=== PATIENT | male | born 1965 | race Caucasian/White ===

== ENCOUNTER 2024-09-24 13:17 | Emergency (ER) | payer OTHER, SELFPAY ==
[2024-09-24 13:26] VITALS: BP 147/80; PULSE 107; RESP 18; TEMP 39.6; O2SAT 99
--- NOTE | 2024-09-24 13:31 | ED_ITS ---
HPI - URI/Sore Throat General Chief Complaint: Upper Respiratory Infection Stated Complaint: chest cold Time Seen by Provider: 09/24/24 13:31 Source: patient and RN notes reviewed Mode of arrival: ambulatory Limitations: no limitations History of Present Illness HPI Narrative: 58 y/o male with HTN presented for c/o headache, body aches, sinus pressure/congestion, cough, fever/chills. Onset yesteray. Denies sob, wheezing, n/v/d. Smokes 1ppd. Taking coricidin and cough drops. MD elicited complaint: cough Related Data Home Medications ?Medication ?Instructions ?Recorded ?Confirmed ?Last Taken ?Type clopidogrel 75 mg tablet mg 09/24/24 Unknown History lisinopril 20 tablet 09/24/24 Unknown History mg-hydrochlorothiazide 25 mg tablet Allergies Allergy/AdvReac Type Severity Reaction Status Date / Time No Known Allergies Allergy Verified 09/24/24 13:32 Review of Systems Review of Systems: CONSTITUTIONAL: Endorses malaise, chills, sweats, fever EYES: Denies visual changes, redness, or discharge ENT: Reports rhinorrhea, congestion, otalgia, sore throat CARDIOVASCULAR: Denies chest pain, palpitations, edema RESPIRATORY: Reports cough, post nasal drainage. Denies dyspnea GASTROINTESTINAL: Denies abdominal pain, nausea, vomiting, diarrhea MUSCULOSKELETAL: Endorses myalgia NEUROLOGIC: Endorses headache COUNT INCLUDES THE [facility] Past Medical History Medical History (Updated 09/24/24 @ 13:47 by Edith Anderson, BRUCE) Hypertension Mini stroke Exam Narrative: GENERAL: Ill-appearing, nontoxic no acute distress. EYES: PERRLA, conjunctivae clear ENT: Mucous membranes moist. TM pearly ortiz with dull light reflex bilaterally; no tragal tenderness. Oropharynx erythematous without lesions or exudate, no drooling, no hoarseness, no trismus, uvula midline. No tripod positioning, muffled voice, soft palate or pharyngeal wall bulging NECK: Supple. No lymphadenopathy CHEST: Clear to auscultation, breath sounds equal. No wheezing, rhonchi, rales, or stridor. No respiratory distress, speaks in full sentences. HEART: Regular rate and rhythm. No murmur heard. SKIN: Warm, dry, no rash. NEURO: Alert and oriented x3. PSYCH: Normal mood and affect Course Course Emergency Course: Patient is aware of diagnosis, understands and agrees to treatment plan. Anticipatory guidance given. Patient agrees to follow-up as directed and is aware of reasons to seek care at the emergency department. Portions of this record may have been created with voice recognition software Level of Care: Express Care Visit Vital Signs Vital signs: Vital Signs Temperature 103.2 F H 09/24/24 13:26 Pulse Rate 107 H 09/24/24 13:26 Respiratory Rate 18 09/24/24 13:26 Blood Pressure 147/80 H 09/24/24 13:26 Pulse Oximetry 99 09/24/24 13:26 Oxygen Delivery Room Air 09/24/24 13:26 Temperature 103.2 F H 09/24/24 13:26 Pulse Rate 107 H 09/24/24 13:26 Respiratory Rate 18 09/24/24 13:26 Blood Pressure 147/80 H 09/24/24 13:26 Pulse Oximetry 99 09/24/24 13:26 Oxygen Delivery Room Air 09/24/24 13:26 reviewed MDM - URI/Sore Throat MDM Narrative Medical decision making narrative: Positive influenza. Discussed physical exam findings. Advised supportive measures and signs/symptoms to go to the ER. Pt is appropriate for outpt treatment and f/u. Differential Diagnosis Differential diagnosis: Likely upper respiratory infection, sinusitis, viral infection, bronchitis and influenza Discharge Plan Discharge Clinical Impression: Influenza Patient Disposition: Home, Self-Care Condition: Stable Instructions: Antibiotic Form, Influenza (ED) Additional Instructions: Influenza positive You should avoid crowds until you are fever free for 24 hours without the use of fever reducing medications, or the symptoms are improved Rest. Drink plenty of fluids. Tylenol 1000mg every 8 hours as needed for pain/fever Recommend Flonase spray and Zyrtec (or Claritin/Radha) for sinus pressure/congestion over the counter Cough syrup may cause drowsiness; avoid driving or take it at night time. Follow up with your primary care provider as needed Go to the ER for worsening symptoms or concerns Patient Language: Welsh Prescriptions: New oseltamivir [Tamiflu] 75 mg capsule 75 mg PO Q12H 5 Days Qty: 10 0RF methylprednisolone [Medrol (Efren)] 4 mg tablets,dose pack See Rx Instructions .ROUTE .COMPLEX Qty: 21 0RF Rx Instructions: orally per package directions albuterol sulfate 90 mcg/actuation HFA aerosol inhaler 2 inh inhalation QID PRN (Reason: shortness of breath or wheezing) Qty: 8.5 0RF No Action clopidogrel 75 mg tablet lisinopril-hydrochlorothiazide 20-25 mg tablet Follow-up/Referrals: Harms,David López M.D. [Primary Care Provider] - Time of Disposition: 13:46
[2024-09-24 13:45] LABS: EDCOVIDSCREEN Negative (Negative); EDINFLUASCREEN Positive (Negative); EDINFLUBSCREEN Negative (Negative)
--- OUTSIDE RECORDS SUMMARY | 2024-09-24 14:04 | XMS_ITS | Clinical Summary ---
Author Organization [facility] [address] [facility] lt Address [address] [place] [address] Care Team Providers Care Broadcast Designer Name Role Phone David Hernandez MD Primary Care Provider [phone] Allergies Active Allergy Reactions Criticality Noted Date Comments Cefprozil Rash Medium Penicillins Rash Medium Medications multivitamin capsule take 1 capsule by ORAL route every day 0 0 Active diphenhydrAMINE -acetaminophen (TYLENOL PM) 25-500 mg tablet Take 1 tablet by mouth daily Active albuterol HFA (PROVENTIL HFA,VENTOLIN HFA,PROAIR HFA) 90 mcg/actuation inhaler INHALE 2 PUFFS BY MOUTH EVERY 4-6 HOURS NEEDED 8.5 each 1 3 Active atorvastatin (LIPITOR) 20 mg tablet TAKE 1 TABLET BY MOUTH EVERY DAY 90 tablet 1 4 Active clobetasoL (TEMOVATE) 0.05 % ointment Apply to affected areas twice a day during exacerbation. Dx: dyshidrotic eczema 60 g 2 4 Active clopidogreL (PLAVIX) 75 mg tabletIndicatio ns:Occipital stroke (HCC) Take 1 tablet (75 mg total) by mouth daily 30 tablet 11 4 Active amLODIPine (NORVASC) 10 mg tablet Take 1 tablet (10 mg total) by mouth daily 90 tablet 3 4 Active doxycycline (PERIOSTAT) 20 mg tablet TAKE 1 TABLET BY MOUTH TWICE A DAY 120 tablet 4 Active lisinopril-hydr oCHLOROthiazide (ZESTORETIC) 20-25 mg per tablet TAKE 1 TABLET BY MOUTH EVERY DAY 30 tablet 10 4 Active Active Problems Problem Noted Date Diagnosed Date Occipital stroke 03/13/2021 Postoperative urinary retention 09/21/2020 Acute cholecystitis 09/04/2020 Obstructive sleep apnea syndrome 01/09/2014 Overview (11/28/2016): Obstructive sleep apnea Tobacco dependence syndrome 01/09/2014 Overview (11/29/2016): TOBACCO USE DISORDER Disorder of joint 10/02/2010 Overview (12/01/2016): ARTHROPATHY NOS-MULT Immunizations Name Administration Dates Next Due Influenza, Quadrivalent, Spl it, Preservative Free, Intramuscular 05/26/2021,05/17/2021 Influenza, Trivalent, IM (MDV) 06/06/2009 Influenza, Trivalent, Preser vative Free, Intramuscular 04/26/2014 Influenza, Unspecified 04/26/2022,2019,07/09/2019,07/09,07/10/2018,07/10/2018 Pfizer SARS-CoV-2 Monovalent Vaccination (12+ Yrs) PURPLE 09/29/2021,09/08/2021 Pneumococcal Polysaccharide PPV23 10/02/2010 Tdap 10/02/2010 Surgical History Surgery Date Site/Laterality Comments FINGER SURGERY 35 years ago CHOLECYSTECTOMY 09/04/2020 Medical History Medical History Date Comments Hx Other Medical Heart attack Peptic ulcer Peptic ulcer dis ease Hx Other Medical kidney diease Hypertension Hypertension Hx Other Medical Headache, migra ine Hyperlipidemia Hyperlipidemia Arthritis Stroke (HCC) Family History Medical History Relation Name Comments Other Brother 2 Healthy; Cancer Father Cancer; Coronary artery disease Father Nancy nary artery disease; Diabetes type II Mother Diabetes me llitus type 2; Hypertension Mother Hypertension; Cancer Other 1 Family history of Cancer; Diabetes Other 2 Family history of Diabetes mellitus; Relation Name Status Comments Brother 1 Alive Brother 2 Father (Age 69) Mother Alive Other 1 Other 2 Social History Tobacco Use Types Packs/Day Years Used Date Smoking Tobacco: Heavy Smoker Cigarettes 1 36 Smokeless Tobacco: Never Tobacco Cessation:Ready to Q uit: Not Asked; Counseling Given: Not Answered Comments:Smoking History Packs/day: 1 Packs Alcohol Use Standard Drinks/Week Comments Not Currently 0 (1 standard drink = 0.6 oz pur e alcohol) [facility] Utilities Answer Date Recorded In the past 12 months has th e electric, gas, oil, or water company threatened to shut off services in your home? No 09/02/2023 Humiliation, Afraid, Rape, and Kick questionnair e Answer Date Recorded Within the last year, have y ou been afraid of your partner or ex-partner? No 09/02/2023 Within the last year, have y ou been humiliated or emotionally abused in other ways by your partner or ex-partner? No Within the last year, have y ou been kicked, hit, slapped, or otherwise physically hurt by your partner or ex-partner? No 09/02/2023 Within the last year, have y ou been raped or forced to have any kind of sexual activity by your partner or ex-partner? No 09/02/2023 Social Connection and Isolat ion Panel [NHANES] Answer Date Recorded In a typical week, how many times do you talk on the phone with family, friends, or neighbors? More than three times a week 09/02/2023 How often do you get togethe r with friends or relatives? More than three times a week 09/02/2023 How often do you attend chur ch or worship services? Never 09/02/2023 Do you belong to any clubs o r organizations such as denominational groups, unions, fraternal or athletic groups, or school groups? No 09/02/2023 How often do you attend meet ings of the clubs or organizations you belong to? Never 09/02/2023 Are you , , di vorced, , never , or living with a partner? 09/02/2023 AUDIT-C Answer Date Recorded Q1: How often do you have a drink containing alcohol? Never 09/02/2023 Q2: How many drinks containi ng alcohol do you have on a typical day when you are drinking? Patient does not drink Q3: How often do you have si x or more drinks on one occasion? Never 09/02/2023 Overall Financial Resource Strain (CARDIA) Answe r Date Recorded How hard is it for you to pa y for the very basics like food, housing, medical care, and heating? Not very hard 09/02/2023 PHQ-2 Answer Date Recorded PHQ-2 Total Score (If total score is 3 or more points, staff should administer the PHQ-9) 0 09/02/2023 [facility] - Occupational Stress Questionnaire Answer Date Recorded Do you feel stress - tense, restless, nervous, or anxious, or unable to sleep at night because your mind is troubled all the time - these days? To some extent 09/02/2023 Exercise Vital Sign Answer Date Recorde d On average, how many days pe r week do you engage in moderate to strenuous exercise (like a brisk walk)? 0 days 09/02/2023 On average, how many minutes do you engage in exercise at this level? 0 min 09/02/2023 Hunger Vital Sign Answer Date Recorded Within the past 12 months, y ou worried that your food would run out before you got the money to buy more. Never true 09/02/19 24 Within the past 12 months, t he food you bought just didn't last and you didn't have money to get more. Never true 09/02/2023 PRAPARE - Transportation Answer Date Re corded In the past 12 months, has l ack of transportation kept you from medical appointments or from getting medications? No 03/2024 In the past 12 months, has l ack of transportation kept you from meetings, work, or from getting things needed for daily living? No 09/02/2023 Housing Stability Vital Sign Answer Ozzy e Recorded In the last 12 months, was t here a time when you were not able to pay the mortgage or rent on time? No 09/02/2023 In the last 12 months, how many places have you lived? 1 09/02/2023 In the last 12 months, was t here a time when you did not have a steady place to sleep or slept in a jail (including now)? No 09/02/2023 Sex and Gender Information Value Date Recorded Sex Assigned at Not on file Legal Sex Male 9:51 AM HOUSE SUPERINTENDENT Gender Identity Not on file Sexual Orientation Straight 11/07/2020 7: 22 AM CDT Obstetrics History Last Filed Vital Signs Vital Sign Reading Time Taken Comments Blood Pressure 118/70 09/02/2023 3:51 PM HOUSE SUPERINTENDENT Pulse 85 09/02/2023 3:51 PM HOUSE SUPERINTENDENT Temperature 36.2 ??C (97.1 ??F) 09/02/2023 3:51 PM CS T Respiratory Rate 16 08/01/2022 3:11 PM HOUSE SUPERINTENDENT Oxygen Saturation 98% 09/02/2023 3:51 PM HOUSE SUPERINTENDENT Inhaled Oxygen Concentration - - Weight 95.3 kg (210 lb) 10/05/2023 9:53 AM HOUSE SUPERINTENDENT Height 175.3 cm (5' 9 ) 10/05/2023 9:53 AM HOUSE SUPERINTENDENT Body Mass Index 31.01 10/05/2023 9:53 AM HOUSE SUPERINTENDENT Plan of Treatment Health Maintenance Due Date Last Done Comments Colon Cancer Screening-Colonoscopy 1965 Hepatitis C Screening 1965 Hepatitis B Screening 10/31/1983 Pneumococcal vaccine <65 (2 of 2 - PCV) 10/02/2011 10/02/2010 Zoster Vaccine (1 of 2) 10/31/2015 Regular Well Visit/Exam 18-64 05/28/2020 05/28/2019 DTaP/Tdap/Td Vaccine (2 - Td or Tdap) 10/02/2020 10/02/2010 Covid-19 Vaccine (3 - 2023-2 5 season) 2024 09/29/2021, 09/08/2021 Influenza Vaccine (#1) 2024 3, 04/26/2022, 05/26/2021, Additional history exists Depression Screening 09/02/2024 09/02/2023, 09/02/2023, 08/01/2022, Additional history exists Prostate Cancer Screening-PSA 09/14/2025, 07/28/2022, 04/06/2019 Colon Cancer Screening-DNA Stool Discontinued 04/26/20 Colon Cancer Screening-FIT Discontinued 04/26/2020 Procedures Procedure Name Priority Date/Time Associated Diagnosis Comments PSA SCREEN Routine 09/14/2023 11:03 AM HOUSE SUPERINTENDENT Prostate cancer screening STOOL DNA ? COLOGUARD Routine 04/26/2020 from Last 3 Months or Most Recently Relevant to Health Maintenance Results * PSA screen (09/14/2023 11:03 AM HOUSE SUPERINTENDENT) PSA-Total 1.16 <=3.90 ng/mL FRANCESCODAVID FINNEY ([place]) Comment: Interpretive Data ?AGE ? SEX ?REFERENCE INTERVAL 0 minutes-150 years ?Female ?None 0 minutes-49 years ? Male ?None ? 50-59 years ? Male ?0-3.90 ? 60-69 years ? Male ?0-5.40 ? 70-79 years ? Male ?0-6.20 ? 80-150 years ?Male ?0-6.20 The Jann PSA Total assay procedure was used. Results from different manufacturers or methods may not be comparable. Serial testing should be performed using the same method. Current interpretive data last revised 21. Blood 09/14/2023 11:0 3 AM HOUSE SUPERINTENDENT 09/14/2023 12:43 PM HOUSE SUPERINTENDENT David Hernandez MD LAB BLOOD ORDERABLES Nanette l Result Performing Organization Address City/[facility]/ZIP Co de Phone Number MARCELLE FINNEY ([place]) 1 [facility] Department [place] [address] * Stool DNA - Cologuard (04/26/2020) Stool Historical Provider LAB BODY FLUIDS AND STOOL S ORDERABLES Final Result EXTERNAL LAB from Last 3 Months or Most Recently Relevant to Health Maintenance Insurance [facility] PL[facility] Advance Directives For more information, please contact: [phone] * Full Code (Latest Code Status on File) Date Activated Date Inactivated Comments 09/04/2020 7:54 PM 09/08/2020 5:15 PM Care Teams Broadcast Designer Relationship Specialty Start Date End Date David Hernandez MD [address] [place] [address] PCP - General 04/06/13
--- OUTSIDE RECORDS SUMMARY | 2024-09-24 14:04 | XMS_ITS | Encounter Summary ---
Author Organization [facility] Address [address] [place] [address] Phone Care Team Providers Care Child Protective Services Social Worker Name Role Phone David Hernandez MD Primary Care Provider [phone] Encounter Details Date Type Department Care Team (Late st Contact Info) Description 09/14/2020 Telephone [facility] Advanced Medicine ([facility]) - [facility] Urology [address] [place] [address] Advanced Medicine 11th [place] [address] [place] [address] Belén Alonzo Social History Tobacco Use Types Packs/Day Years Used Date Smoking Tobacco: Heavy Smoker Cigarettes Smokeless Tobacco: Never Comments:Smoking History Pac ks/day: 1 Packs Alcohol Use Standard Drinks/Week Comments Not Currently 0 (1 standard drink = 0.6 oz pur e alcohol) PHQ-2 Answer Date Recorded PHQ-2 Total Score (If total score is 3 or more points, staff should administer the PHQ-9) 0 03/02/2020 Sex and Gender Information Value Date Recorded Sex Assigned at Not on file 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
--- OUTSIDE RECORDS SUMMARY | 2024-09-24 14:04 | XMS_ITS | Referral Summary ---
Author Organization [facility] [address] [facility] lt Address [address] [place] [address] Care Team Providers Care Video Control Operator Name Role Phone David Hernandez MD Primary Care Provider [phone] Allergies Active Allergy Reactions Criticality Noted Date [...] 09/29/2021,09/08/2021 Pneumococcal Polysaccharide PPV23 10/02/2010 Tdap 10/02/2010 Social History Tobacco Use Types Packs/Day Years Used Date Smoking Tobacco: Heavy Smoker Cigarettes 1 36 Smokeless Tobacco: Never Tobacco Cessation:Ready to Q uit: Not Asked; Counseling Given: Not Answered Comments:Smoking History Packs/day: 1 Packs Alcohol Use Standard Drinks/Week Comments Not Currently 0 (1 standard drink = 0.6 oz pur e alcohol) [facility] Utilities Answer Date Recorded In the past 12 months has e [employer] gas, oil, or water Traveler | [employer] threatened to shut off services in your [...] 09/02/2023 How often do you attend chur or latter-day services? Never 09/02/2023 Do you belong to any clubs o r organizations such as adventism groups, unions, fraternal or athletic groups, or [...] staff should administer the PHQ-9) 0 09/02/2023 [facility] of Occupat ional Health - Occupational Stress Questionnaire Answer Date Recorded [...] place to sleep or slept in a fci (including now)? No 09/02/2023 Sex and Gender Information Value Date Recorded Sex Assigned at Not on file Legal Sex Male 9:51 AM CLINICAL TRIALS ASSISTANT Gender Identity Not on file Sexual Orientation Straight 11/07/2020 7: 22 AM CDT Last Filed Vital Signs Vital Sign Reading Time Taken Comments Blood Pressure 118/70 09/02/2023 3:51 PM CLINICAL TRIALS ASSISTANT Pulse 85 09/02/2023 3:51 PM CLINICAL TRIALS ASSISTANT Temperature 36.2 ??C (97.1 ??F) 09/02/2023 3:51 PM CS T Respiratory Rate 16 08/01/2022 3:11 PM CLINICAL TRIALS ASSISTANT Oxygen Saturation 98% 09/02/2023 3:51 PM CLINICAL TRIALS ASSISTANT Inhaled Oxygen Concentration - - Weight 95.3 kg (210 lb) 10/05/2023 9:53 AM CLINICAL TRIALS ASSISTANT Height 175.3 cm (5' 9 ) 10/05/2023 9:53 AM CLINICAL TRIALS ASSISTANT Body Mass Index 31.01 10/05/2023 9:53 AM CLINICAL TRIALS ASSISTANT Plan of Treatment Not on file Procedures Procedure Name Priority Date/Time Associated Diagnosis Comments PSA SCREEN Routine 09/14/2023 11:03 AM CLINICAL TRIALS ASSISTANT Prostate cancer screening STOOL DNA ? COLOGUARD Routine 04/26/2020 from Last 3 Months or Most Recently Relevant to Health Maintenance Results * PSA screen (09/14/2023 11:03 AM CLINICAL TRIALS ASSISTANT) PSA-Total 1.16 <=3.90 ng/mL MARCELLE FINNEY ([place]) Comment: Interpretive Data ?AGE ? SEX ?REFERENCE [...] revised 21. Blood 09/14/2023 11:0 3 AM CLINICAL TRIALS ASSISTANT 09/14/2023 12:43 PM CLINICAL TRIALS ASSISTANT us David Hernandez MD LAB BLOOD ORDERABLES Nanette caceres Result MARCELLE SHARMIN ([place]) 1 [facility] Department [place] [address] * Stool DNA - Cologuard (04/26/2020) Stool us Historical Provider MD LAB BODY FLUIDS AND STOOL S ORDERABLES Final Result EXTERNAL LAB from Last 3 Months or Most Recently Relevant to Health Maintenance Insurance [facility] CHOICE PLUS [facility] PLUS [facility] Advance Directives For more information, please contact: [phone] * Full Code (Latest Code Status on File) Date Activated Date Inactivated Comments 09/04/2020 7:54 PM 09/08/2020 5:15 PM Care Teams Video Control Operator Relationship Specialty Start Date End Date David Hernandez MD [address] [place] [address] PCP - General 04/06/13"
== END 2024-09-24 13:51 | disposition home or self-care (01) ==
PROVIDERS: Emergency Provider Nurse Practitioner Family; PCP Family Medicine
DX: J10.1 Influenza due to other identified influenza virus with other respiratory manifestations (principal); Z20.822 Contact with and (suspected) exposure to COVID-19; I10 Essential (primary) hypertension; Z86.73 Personal history of transient ischemic attack (TIA), and cerebral infarction without residual deficits
CPT/HCPCS: 87426; 87804; 99203; G0463

== ENCOUNTER 2024-10-03 14:55 | Emergency (ER) | payer OTHER, SELFPAY ==
--- NOTE | ~2024-10-03 | XR_ITS ---
EXAMINATION: XR chest 2V Exam Date/Time: 10/03/2024 17:08 DIET TECHNICIAN REGISTERED HISTORY: cough Comparison: None. RESULT: Lines, tubes, and devices: Cholecystectomy clips. Lungs and pleura: Mild emphysematous change, otherwise clear. Cardiomediastinal silhouette: Unremarkable. Other: No acute osseous or upper abdominal finding. IMPRESSION: No acute cardiopulmonary process. Reviewed, dictated and finalized at location K. TECHNICIAN REGISTERED
--- OUTSIDE RECORDS SUMMARY | 2024-10-03 15:11 | XMS_ITS | Clinical Summary ---
Author Organization [facility] [address] [facility] lt Address [address] [place] [address] Care Team Providers Care Freight Caller Name Role Phone David Hernandez MD Primary Care Provider [phone] [phone] Allergies Active Allergy Reactions Criticality Noted Date Comments Cefprozil Rash Medium Penicillins Rash Medium Medications multivitamin capsule take 1 capsule by ORAL route every day 0 04/11/20 10 Active diphenhydrAMIN E-acetaminophe n (TYLENOL PM) 25-500 mg tablet Take 1 tablet by mouth daily Active albuterol HFA (PROVENTIL HFA,VENTOLIN HFA,PROAIR HFA) 90 mcg/actuation inhaler INHALE 2 PUFFS BY MOUTH EVERY 4-6 HOURS NEEDED 8.5 each 1 02/15/20 23 Active atorvastatin (LIPITOR) 20 mg tablet TAKE 1 TABLET BY MOUTH EVERY DAY 90 tablet 1 08/27/19 24 Active clobetasoL (TEMOVATE) 0.05 % ointment Apply to affected areas twice a day during exacerbation. Dx: dyshidrotic eczema 60 g 2 09/02/19 24 Active amLODIPine (NORVASC) 10 mg tablet Take 1 tablet (10 mg total) by mouth daily 90 tablet 3 09/02/19 24 Active doxycycline (PERIOSTAT) 20 mg tablet TAKE 1 TABLET BY MOUTH TWICE A DAY 120 tablet 10/23/19 24 Active lisinopril-hyd roCHLOROthiazi de (ZESTORETIC) 20-25 mg per tablet TAKE 1 TABLET BY MOUTH EVERY DAY 30 tablet 10 12/09/19 24 Active clopidogreL (PLAVIX) 75 mg tabletIndicati ons:Occipital stroke (HCC) TAKE 1 TABLET BY MOUTH EVERY DAY 30 tablet 1 09/29/19 25 Active clopidogreL (PLAVIX) 75 mg tabletIndicati ons:Occipital stroke (HCC) Take 1 tablet (75 mg total) by mouth daily 30 tablet 11 09/02/19 24 025 Discontinued Active Problems Problem Noted Date Diagnosed Date Occipital stroke 03/13/2021 Postoperative urinary retention 09/21/2020 Acute cholecystitis 09/04/2020 Obstructive sleep apnea syndrome 01/09/2014 Overview (11/28/2016): Obstructive sleep apnea Tobacco dependence syndrome 01/09/2014 Overview (11/29/2016): TOBACCO USE DISORDER Disorder of joint 10/02/2010 Overview (12/01/2016): ARTHROPATHY NOS-MULT Encounters Date Type Department Care Team Description 09/28/2024 Orders Only [facility] Information Management [address] [place] [id number] Scanning, Provider from Last 3 Months Immunizations Name Administration Dates Next Due Influenza, [...] drink = 0.6 oz pur e alcohol) [facility] [employer] Answer Date Recorded In the past 12 months has e [employer], gas, oil, or water [employer] threatened to shut off services in your [...] often do you attend chur ch or yarsani services? Never 09/02/2023 Do you belong to any clubs o r organizations such as mu-ism groups, unions, fraternal or athletic groups, or [...] staff should administer the PHQ-9) 0 09/02/2023 [facility] of Occupat ional Health - Occupational Stress [...] place to sleep or slept in a retirement (including now)? No 09/02/2023 Sex and Gender Information Value Date Recorded Sex Assigned at Not on file Legal Sex Male 9:51 AM HAND ROLLER ENGRAVER Gender Identity Not on file Sexual Orientation Straight 11/07/2020 7: 22 AM CDT Obstetrics History Last Filed Vital Signs Vital Sign Reading Time Taken Comments Blood Pressure 118/70 09/02/2023 3:51 PM HAND ROLLER ENGRAVER Pulse 85 09/02/2023 3:51 PM HAND ROLLER ENGRAVER Temperature 36.2 C (97.1 F) 09/02/2023 3:51 PM HAND ROLLER ENGRAVER Respiratory Rate 16 08/01/2022 3:11 PM HAND ROLLER ENGRAVER Oxygen Saturation 98% 09/02/2023 3:51 PM HAND ROLLER ENGRAVER Inhaled Oxygen Concentration - - Weight 95.3 kg (210 lb) 10/05/2023 9:53 AM HAND ROLLER ENGRAVER Height 175.3 cm (5' 9 ) 10/05/2023 9:53 AM HAND ROLLER ENGRAVER Body Mass Index 31.01 10/05/2023 9:53 AM HAND ROLLER ENGRAVER Plan of Treatment Health Maintenance Due Date [...] 2024 09/29/2021, 09/08/2021 Influenza Vaccine (#1) 2024 , 04/26/2022, 05/26/2021, Additional history exists Depression Screening 09/02/2024 09/02/2023, 09/02/2023, 08/01/2022, Additional history exists Prostate Cancer Screening-PSA 09/14/2025, 07/28/2022, 04/06/2019 Colon Cancer Screening-DNA Stool Discontinued 04/26/20 Colon Cancer Screening-FIT Discontinued 04/26/2020 Procedures Procedure Name Priority Date/Time Associated Diagnosis Comments SCAN - LABS 09/28/2024 9:05 PM HAND ROLLER ENGRAVER PSA SCREEN Routine 09/14/2023 11:03 AM HAND ROLLER ENGRAVER Prostate cancer screening STOOL DNA COLOGUARD Routine 04/26/2020 from Last 3 Months or Most Recently Relevant to Health Maintenance Results * SCAN - LABS (09/28/2024 9:05 PM HAND ROLLER ENGRAVER) Provider Scanning Final Result * PSA screen (09/14/2023 11:03 AM HAND ROLLER ENGRAVER) PSA-Total 1.16 <=3.90 ng/mL MARCELLE FINNEY (MELANY) Comment: Interpretive Data AGE SEX REFERENCE INTERVAL 0 minutes-150 years Female None 0 minutes-49 years Male None 50-59 years Male 0-3.90 60-69 years Male 0-5.40 70-79 years Male 0-6.20 80-150 years Male 0-6.20 The Jann PSA Total assay procedure was used. Results from different manufacturers or methods may not be comparable. Serial testing should be performed using the same method. Current interpretive data last revised 21. Blood 09/14/2023 11:0 3 AM HAND ROLLER ENGRAVER 09/14/2023 12:43 PM HAND ROLLER ENGRAVER David Hernandez MD LAB BLOOD ORDERABLES Nanette l Result MARCELLE FINNEY (MELANY) 1 [facility] Department [place] [address] * Stool DNA - Cologuard (04/26/2020) Stool Ernestina Provider LAB BODY FLUIDS AND STOOL S ORDERABLES Final Result EXTERNAL LAB from Last 3 Months or Most Recently Relevant to Health Maintenance Insurance [facility] Advance Directives For more information, please contact: [phone] * Full Code (Latest Code Status on File) Date Activated Date Inactivated Comments 09/04/2020 7:54 PM 09/08/2020 5:15 PM Care Teams Freight Caller Relationship Specialty Start Date End Date David Hernandez MD [address] [place] [address] PCP - General 04/06/13
--- OUTSIDE RECORDS SUMMARY | 2024-10-03 15:11 | XMS_ITS | Referral Summary ---
Author Organization [facility] [address] [facility] lt Address [address] [place] [address] Care Team Providers Care Adult Daycare Coordinator Name Role Phone David Hernandez MD Primary Care Provider [phone] Encounters Date Type Department Care Team Description 09/28/2024 Orders Only [facility] Health Information Management [address] [place] [address] Scanning, Provider from Last 3 Months Allergies Active Allergy Reactions Criticality Noted Date [...] 0.6 oz pur e alcohol) [facility] Utilities Answer Date Recorded In the past 12 months has th e electric, gas, oil, or water [employer] threatened to shut off services in your [...] often do you attend chur ch or restorationist services? Never 09/02/2023 Do you belong to any clubs o r organizations such as faith groups, unions, fraternal or athletic groups, or [...] staff should administer the PHQ-9) 0 09/02/2023 [facility] of Occupat ional Health - Occupational Stress [...] place to sleep or slept in a long term (including now)? No 09/02/2023 Sex and Gender Information Value Date Recorded Sex Assigned at Not on file Legal Sex Male 9:51 AM FORMING ROLL OPERATOR Gender Identity Not on file Sexual Orientation Straight 11/07/2020 7: 22 AM CDT Last Filed Vital Signs Vital Sign Reading Time Taken Comments Blood Pressure 118/70 09/02/2023 3:51 PM FORMING ROLL OPERATOR Pulse 85 09/02/2023 3:51 PM FORMING ROLL OPERATOR Temperature 36.2 C (97.1 F) 09/02/2023 3:51 PM FORMING ROLL OPERATOR Respiratory Rate 16 08/01/2022 3:11 PM FORMING ROLL OPERATOR Oxygen Saturation 98% 09/02/2023 3:51 PM FORMING ROLL OPERATOR Inhaled Oxygen Concentration - - Weight 95.3 kg (210 lb) 10/05/2023 9:53 AM FORMING ROLL OPERATOR Height 175.3 cm (5' 9 ) 10/05/2023 9:53 AM FORMING ROLL OPERATOR Body Mass Index 31.01 10/05/2023 9:53 AM FORMING ROLL OPERATOR Plan of Treatment Not on file Procedures Procedure Name Priority Date/Time Associated Diagnosis Comments SCAN - LABS 09/28/2024 9:05 PM FORMING ROLL OPERATOR PSA SCREEN Routine 09/14/2023 11:03 AM FORMING ROLL OPERATOR Prostate cancer screening STOOL DNA COLOGUARD Routine 04/26/2020 from Last 3 Months or Most Recently Relevant to Health Maintenance Results * SCAN - LABS (09/28/2024 9:05 PM FORMING ROLL OPERATOR) Provider Scanning Final Result * PSA screen (09/14/2023 11:03 AM FORMING ROLL OPERATOR) PSA-Total 1.16 <=3.90 ng/mL MARCELLE FINNEY (RUSSELL) Comment: Interpretive Data AGE SEX REFERENCE INTERVAL [...] revised 21. Blood 09/14/2023 11:0 3 AM FORMING ROLL OPERATOR 09/14/2023 12:43 PM FORMING ROLL OPERATOR David Hernandez MD LAB BLOOD ORDERABLES Nanette caceres Result MARCELLE FINNEY (RUSSELL) 1 [facility] Department of Laboratories [place], [place] [id number] * Stool DNA - Cologuard (04/26/2020) Stool us Historical Provider LAB BODY FLUIDS AND STOOL S ORDERABLES Final Result Performing Organization Address City/State/[facility] Co de Phone Number EXTERNAL LAB from Last 3 Months or Most Recently Relevant to Health Maintenance Insurance [facility] Advance Directives For more information, please contact: [phone] * Full Code (Latest Code Status on File) Date Activated Date Inactivated Comments 09/04/2020 7:54 PM 09/08/2020 5:15 PM Care Teams Adult Daycare Coordinator Relationship Specialty Start Date End Date David Hernandez MD [address] [place] [address] PCP - General 04/06/13
--- OUTSIDE RECORDS SUMMARY | 2024-10-03 15:11 | XMS_ITS | Encounter Summary ---
Author Organization [facility] Address [address] [place] [address] Phone Care Team Providers Care Deposit Clerk Name Role Phone David Hernandez MD Primary Care Provider [phone] Encounter Details Date Type Department Care Team (Late st Contact Info) Description 09/14/2020 Telephone [facility] Advanced Medicine ([facility]) - [facility] Urology [address] [place] [address] Advanced Medicine 11th [place] [address] [place] [address] Belén Alonzo Social History Tobacco Use Types [...] on file Legal Sex Male 9:51 AM VTC TECHNICIAN Gender Identity Not on file Sexual Orientation Straight 11/07/2020 7: 22 AM CDT documented as of this encounter Plan of Treatment Not on file documented as of this encounter Visit Diagnoses Not on filedocumented in this encounter Care Teams Deposit Clerk Relationship Specialty Start Date End Date [place] [address] PCP - General 04/06/13 documented as of this encounter
--- OUTSIDE RECORDS SUMMARY | 2024-10-03 15:11 | XMS_ITS | Encounter Summary ---
Author Organization [facility] Address [address] [place] [address] Care Team Providers Care Tennis Net Maker Name Role Phone David Hernandez MD Primary Care Provider [phone] Encounter Details Date Type Department Care Team (Late st Contact Info) Description 09/28/2024 Orders Only [facility] [place] Information Management [address] [place] [address] Scanning, Provider Social History Tobacco Use Types Packs/Day Years Used Date Smoking Tobacco: Heavy Smoker Cigarettes 1 36 Smokeless Tobacco: Never Comments:Smoking History Pac ks/day: 1 Packs Alcohol Use Standard Drinks/Week Comments Not Currently 0 (1 standard drink = 0.6 oz pur e alcohol) [facility] Utilities Answer Date Recorded In the past 12 months has e [employer], gas, oil, or water [employer] threatened to shut off services in your [...] often do you attend chur ch or catholic services? Never 09/02/2023 Do you belong to any clubs o r organizations such as roman catholic groups, unions, fraternal or athletic groups, or [...] staff should administer the PHQ-9) 0 09/02/2023 [facility] Questionnaire Answer Date Recorded [...] place to sleep or slept in a senior care (including now)? No 09/02/2023 Sex and Gender Information Value Date Recorded Sex Assigned at Not on file Legal Sex Male 9:51 AM WORKING SECOND HAND Gender Identity Not on file Sexual Orientation Straight 11/07/2020 7: 22 AM CDT documented as of this encounter Plan of Treatment Not on file documented as of this encounter Procedures Procedure Name Priority Date/Time Associated Diagnosis Comments SCAN - LABS 09/28/2024 9:05 PM WORKING SECOND HAND documented in this encounter Results * SCAN - LABS (09/28/2024 9:05 PM WORKING SECOND HAND) us Provider Scanning Final Result documented in this encounter Visit Diagnoses Not on filedocumented in this encounter Care Teams Tennis Net Maker Relationship Specialty Start Date End [place] [address] PCP - General 04/06/13 documented as of this encounter
[2024-10-03 15:22] VITALS: BP 124/64; PULSE 79; RESP 16; TEMP 36.9; O2SAT 96
--- NOTE | 2024-10-03 17:07 | ED_ITS ---
HPI - General Adult General Chief complaint: Upper Respiratory Infection Stated complaint: cough, upper chest Source: patient Mode of arrival: ambulatory Limitations: no limitations History of Present Illness HPI narrative: Patient presents for evaluation of cough. He was seen here on 09/24/2024 and was diagnosed with influenza. He was given tamiflu and steroids. His symptoms improved. He now has recurrence of cough. He states he feels like it is settling in the left side of his chest. He states he previously had a fever but has not had a fever as of late. He denies any chills, nausea, vomiting or diar zen. His is currently sick with similar symptoms. He smokes 1 ppd. He has been taking some OTC cough syrup. He is not sure whether it is particularly helping. Related Data Home Medications ?Medication ?Instructions ?Recorded ?Confirmed ?Last Taken ?Type clopidogrel 75 mg tablet mg 09/24/24 Unknown History lisinopril 20 tablet 09/24/24 Unknown History mg-hydrochlorothiazide 25 mg tablet Allergies Allergy/AdvReac Type Severity Reaction Status Date / Time No Known Allergies Allergy Verified 09/24/24 13:32 Review of Systems Review of Systems: CONSTITUTIONAL: Denies fever, chills, or sweats. EYES: Denies visual changes, redness, or discharge. ENT: Denies rhinorrhea, congestion, sore throat, or otalgia. CARDIOVASCULAR: Denies chest pain, palpitations, or edema. RESPIRATORY: Reports cough GASTROINTESTINAL: Denies abdominal pain, nausea, vomiting, or diarrhea. GENITOURINARY: Denies dysuria or hematuria. SKIN: Denies rash or itching. MUSCULOSKELETAL: Denies back pain, joint pain, or myalgia. NEUROLOGIC: Denies headache, numbness, dizziness, or weakness. PSYCHIATRIC: Denies anxiety or depression. COUNTS INCLUDE 234 BEDS AT [facility] Past Medical History Medical History (Updated 10/03/24 @ 18:03 by Tyrell Medley, ERNESTO, ) Hypertension Mini stroke Surgical History Surgical History No pertinent past surgical history Family History Family History Mother Family history non-contributory Social History Social History Smoking packs per day: 1 Smoking cigarettes per day: 20.0 Smoking status: Current every day smoker Tobacco type: cigarettes Living arrangements: with family Gender identity (if verbalized by the patient): Male Sexual Orientation (if Verbalized by the Patient): Straight or Heterosexual Spiritual care concerns: No Exam Narrative: GENERAL: Well-appearing, well-nourished, and in no acute distress. HEAD: Normocephalic, atraumatic. EYES: PERRLA and EOMI. ENT: Nares clear, no rhinorrhea or epistaxis. Mucous membranes moist. Oropharynx without tonsillar hypertrophy exudate or other lesions. Bilateral TMs pearly ortiz nonbulging NECK: Supple. No adenopathy or masses. No carotid bruits or JVD CHEST: Clear to auscultation. No respiratory distress. No wheezes rales or rhonchi HEART: Regular rate and rhythm. No murmur heard. Normal peripheral pulses. ABDOMEN: Soft, nontender, nondistended, normal active bowel sounds. EXTREMITIES: Normal range of motion. No edema. SKIN: Warm, dry, no rash. NEURO: No focal deficits. Alert and oriented x3. PSYCH: Normal mood and affect. Course Course Emergency Course: This is a 58-year-old male who presents for evaluation cough after recent diagnosis of influenza for which she was treated with prednisone and Tamiflu. Chest x-ray today negative. He requested a script for steroids. Will taper this doses he was recently on a burst. He has an albuterol inhaler at home. Dextromethorphan should help with cough. Increase hydration. Follow up with primary provider. Go to the ER for worsening symptoms. Patient in agreement with plan care. Level of Care: Express Care Visit Vital Signs Vital signs: Vital Signs Temperature 36.9 C 10/03/24 15:22 Pulse Rate 79 10/03/24 15:22 Respiratory Rate 16 10/03/24 15:22 Blood Pressure 124/64 10/03/24 15:22 Pulse Oximetry 96 10/03/24 15:22 Oxygen Delivery Room Air 10/03/24 15:22 Temperature 36.9 C 10/03/24 15:22 Pulse Rate 79 10/03/24 15:22 Respiratory Rate 16 10/03/24 15:22 Blood Pressure 124/64 10/03/24 15:22 Pulse Oximetry 96 10/03/24 15:22 Oxygen Delivery Room Air 10/03/24 15:22 Medical Decision Making Vital Signs Vital Signs: Vital Signs Temperature 36.9 C 10/03/24 15:22 Pulse Rate 79 10/03/24 15:22 Respiratory Rate 16 10/03/24 15:22 Blood Pressure 124/64 10/03/24 15:22 Pulse Oximetry 96 10/03/24 15:22 Oxygen Delivery Room Air 10/03/24 15:22 Temperature 36.9 C 10/03/24 15:22 Pulse Rate 79 10/03/24 15:22 Respiratory Rate 16 10/03/24 15:22 Blood Pressure 124/64 10/03/24 15:22 Pulse Oximetry 96 10/03/24 15:22 Oxygen Delivery Room Air 10/03/24 15:22 Imaging Data Radiologist's impression: EXAMINATION: XR chest 2V Exam Date/Time: 10/03/2024 17:08 WINDING LATHE OPERATOR HISTORY: cough Comparison: None. RESULT: Lines, tubes, and devices: Cholecystectomy clips. Lungs and pleura: Mild emphysematous change, otherwise clear. Cardiomediastinal silhouette: Unremarkable. Other: No acute osseous or upper abdominal finding. IMPRESSION: No acute cardiopulmonary process. Discharge Plan Discharge Clinical Impression: Upper respiratory infection, viral Patient Disposition: Home, Self-Care Condition: Stable Instructions: Antibiotic Form, Upper Respiratory Infection (ED) Additional Instructions: DEXTROMETHORPHAN (DELSYM) SHOULD HELP WITH YOUR COUGH Patient Language: [place] Prescriptions: New prednisone 20 mg tablet See Rx Instructions .ROUTE .COMPLEX Qty: 11 0RF Rx Instructions: take 2 tabs po daily x 3 days, then 1 tab po daily x 3 days, then 1/2 tab po daily x 4 days No Action clopidogrel 75 mg tablet lisinopril-hydrochlorothiazide 20-25 mg tablet oseltamivir [Tamiflu] 75 mg capsule 75 mg PO Q12H 5 Days Qty: 10 0RF methylprednisolone [Medrol (Efren)] 4 mg tablets,dose pack See Rx Instructions .ROUTE .COMPLEX Qty: 21 0RF Rx Instructions: orally per package directions albuterol sulfate 90 mcg/actuation HFA aerosol inhaler 2 inh inhalation QID PRN (Reason: shortness of breath or wheezing) Qty: 8.5 0RF Follow-up/Referrals: Harms,David López M.D. [Primary Care Provider] - Time of Disposition: 18:04
== END 2024-10-03 18:09 | disposition home or self-care (01) ==
PROVIDERS: Emergency Provider Nurse Practitioner; PCP Family Medicine
DX: J06.9 Acute upper respiratory infection, unspecified (principal); F17.210 Nicotine dependence, cigarettes, uncomplicated; I10 Essential (primary) hypertension
CPT/HCPCS: 71046; 99213; G0463